=== PATIENT | male | born 1955 | race African-American/Black ===

== ENCOUNTER → 2019-07-07 | Emergency (ER) | payer OTHER ==
[~2019-07-07] VITALS: Ht 188 cm; Wt 86.2 kg
[~2019-07-07] MED LIST: traMADol 50mg tab ORAL ONE
--- NOTE | 2019-07-07 21:09 | NUR ---
ED Nurse Note: PT brought in by ambulance from the street for yelling and C/O sciatica / back pain. PT also reports having sharp chest pain x 1 month. denies any cough.
[2019-07-07 21:12] VITALS: BP 135/105
[2019-07-07] MEDS: Aspirin Baby 81mg ORAL ONE ×2 (21:35→21:39)
[2019-07-07 21:43] LABS: BASOPHILS % (AUTO) 1.6 % (0.0-2.0); EOSINOPHILS % (AUTO) 1.4 % (0.0-3.0); HEMATOCRIT 37.3 % (42.0-52.0); HEMOGLOBIN 11.5 G/DL (14.2-18.0); LYMPHOCYTES % (AUTO) 32.3 % (20.0-45.0); MEAN CORPUSCULAR VOLUME 83 FL (80-99); MONOCYTES % (AUTO) 10.1 % (1.0-10.0); NEUTROPHILS % (AUTO) 54.7 % (45.0-75.0); PLATELET COUNT 417 K/UL (150-450); RED BLOOD COUNT 4.47 M/UL (4.70-6.10); RED CELL DISTRIBUTION WIDTH 18.6 % (11.6-14.8); WHITE BLOOD COUNT 5.9 K/UL (4.8-10.8)
--- NOTE | 2019-07-07 21:45 | Emergency Room Report ---
History of Present Illness General Chief Complaint: Pain Source: Patient (Brandy Arriaga DO) Present Illness HPI This patient is homeless from the streets. He states that several months ago he fell forward and hit his chest. He states that he has intermittent sharp pain on the left side of his chest. He states he also has sciatica and that the sciatica has flared up. The patient is easily agitated and yells and swears. He denies cough or congestion. He denies fever chills. He denies nausea or vomiting. He has no other complaints. (Brandy Arriaga DO) Allergies: Coded Allergies: No Known Allergies (Unverified , 07/07/19) COVID-19 Screening Contact w/high risk pt: No Recent Travel to affected area: No Experienced COVID-19 symptoms?: No COVID-19 Testing performed [employer]: No (Brandy Arriaga DO) Patient History Past Medical History: see triage record, HTN, GERD, other - Bilateral inguinal hernias, Sciatica, ulcerative colitis. Social History: Reports: alcohol use, drug use Reviewed Nursing Documentation: PMH: Agreed; PSxH: Agreed (Brandy Arriaga DO) Nursing Documentation-PMH Past Medical History: No Stated History (Brandy Arriaga DO) Review of Systems All Other Systems: negative except mentioned in HPI (Brandy Arriaga DO) Physical Exam Vital Signs Date Time Temp Pulse Resp B/P (MAP) Pulse Ox O2 Delivery O2 Flow Rate FiO2 07/07/19 21:06 98.2 84 20 140/111 (121) 100 Room Air Sp02 EP Interpretation: reviewed, normal General Appearance: no apparent distress, alert, GCS 15, non-toxic, other - discheveled, poor personal hygiene, poor dentition. Head: normocephalic, atraumatic Eyes: bilateral eye normal inspection, bilateral eye PERRL ENT: hearing grossly normal, normal pharynx, no angioedema, normal voice, other - Poor dentition Neck: normal inspection Respiratory: chest non-tender, lungs clear, normal breath sounds, no respiratory distress, no retraction, no accessory muscle use, speaking full sentences Cardiovascular #1: regular rate, rhythm, no edema Gastrointestinal: normal bowel sounds, non tender, soft, non-distended, no guarding, no rebound, other - Large bilaleral indirect inguinal hernias into both scrotum. Rectal: deferred Genitourinary: other - See above. Musculoskeletal: back normal, normal range of motion, gait/station normal, non- tender Neurologic: alert, motor strength/tone normal, oriented x3, sensory intact, responsive, speech normal Psychiatric: judgement/insight normal, memory normal, mood/affect normal, no suicidal/homicidal ideation Skin: normal color (Colianno,Brandy Nikki. DO) Medical Decision Making Diagnostic Impression: Primary Impression: Chest pain Qualified Codes: R07.9 - Chest pain, unspecified Additional Impressions: Sciatica Qualified Codes: M54.30 - Sciatica, unspecified side Methamphetamine abuse ER Course This patient was very agitated during his ED course. He was yelling and swearing at the staff. He was demanding and disruptive. He refused a chest x- ray. He did agree to a lab draw and EKG, L-spine xray and CXR which was pending at the time of turnover to Dr. Hill. Plan to rule out significant chest injury and review basic labs and monitor for an emergency medical condition. Labs Test 07/07/19 21:30 07/07/19 21:50 White Blood Count 5.9 K/UL (4.8-10.8) Red Blood Count 4.47 M/UL (4.70-6.10) Hemoglobin 11.5 G/DL (14.2-18.0) Hematocrit 37.3 % (42.0-52.0) Mean Corpuscular Volume 83 FL (80-99) Mean Corpuscular Hemoglobin 25.6 PG (27.0-31.0) Mean Corpuscular Hemoglobin Concent 30.7 G/DL (32.0-36.0) Red Cell Distribution Width 18.6 % (11.6-14.8) Platelet Count 417 K/UL (150-450) Mean Platelet Volume 6.4 FL (6.5-10.1) Neutrophils (%) (Auto) 54.7 % (45.0-75.0) Lymphocytes (%) (Auto) 32.3 % (20.0-45.0) Monocytes (%) (Auto) 10.1 % (1.0-10.0) Eosinophils (%) (Auto) 1.4 % (0.0-3.0) Basophils (%) (Auto) 1.6 % (0.0-2.0) Sodium Level 140 MMOL/L (136-145) Potassium Level 4.0 MMOL/L (3.5-5.1) Chloride Level 105 MMOL/L (98-107) Carbon Dioxide Level 25 MMOL/L (21-32) Anion Gap 10 mmol/L (5-15) Blood Urea Nitrogen 20 mg/dL (7-18) Creatinine 1.3 MG/DL (0.55-1.30) Estimat Glomerular Filtration Rate > 60 mL/min (>60) Glucose Level 67 MG/DL (74-106) Calcium Level 9.2 MG/DL (8.5-10.1) Total Bilirubin 0.4 MG/DL (0.2-1.0) Aspartate Amino Transf (AST/SGOT) 48 U/L (15-37) Alanine Aminotransferase (ALT/SGPT) 45 U/L (12-78) Alkaline Phosphatase 98 U/L (46-116) Troponin I 0.023 ng/mL (0.000-0.056) Total Protein 7.6 G/DL (6.4-8.2) Albumin 3.2 G/DL (3.4-5.0) Globulin 4.4 g/dL Albumin/Globulin Ratio 0.7 (1.0-2.7) Urine Opiates Screen Negative (NEGATIVE) Urine Barbiturates Screen Negative (NEGATIVE) Phencyclidine (PCP) Screen Negative (NEGATIVE) Urine Amphetamines Screen Positive (NEGATIVE) Urine Benzodiazepines Screen Negative (NEGATIVE) Urine Cocaine Screen Negative (NEGATIVE) Urine Marijuana (THC) Screen Positive (NEGATIVE) ([facility]) EKG Diagnostic Results Rate: normal Rhythm: NSR ST Segments: no acute changes ([facility] DO) Rhythm Strip Diag. Results EP Interpretation: yes Rate: 80's Rhythm: NSR, no PVC's, no ectopy ([facility] DO) Last Vital Signs Date Time Temp Pulse Resp B/P (MAP) Pulse Ox O2 Delivery O2 Flow Rate FiO2 07/07/19 21:12 98.0 88 19 135/105 99 Room Air ([facility]) Status: improved (Jaguar Hill MD) Disposition: HOME, SELF-CARE Condition: Stable Referrals: NON PHYSICIAN (PCP) Brandy Arriaga DO July 07, 2019 21:45 Jaguar Hill MD July 08, 2019 03:21
[2019-07-07 21:57] LABS: ANION GAP 10 mmol/L (5-15); BLOOD UREA NITROGEN 20 mg/dL (7-18); CARBON DIOXIDE 25 MMOL/L (21-32); CHLORIDE 105 MMOL/L (98-107); CREATININE 1.3 MG/DL (0.55-1.30); SODIUM 140 MMOL/L (136-145)
[2019-07-07 21:58] LABS: ALANINE AMINOTRANSFERASE 45 U/L (12-78); ALBUMIN 3.2 G/DL (3.4-5.0); ALBUMIN/GLOBULIN RATIO 0.7 (1.0-2.7); ALKALINE PHOSPHATASE 98 U/L (46-116); ASPARTATE AMINO TRANSFERASE 48 U/L (15-37); BILIRUBIN,TOTAL 0.4 MG/DL (0.2-1.0); CALCIUM 9.2 MG/DL (8.5-10.1)
--- NOTE | 2019-07-08 09:36 | Diagnostic Imaging Report ---
Procedure: XRAY Chest 1v Reason for study: Chest pain Comparison films: None. FINDINGS: A single one view chest is obtained. Vascularity is normal. There could be early perihilar infiltrates. There is cardiomegaly. CP angles are sharp. The bony thorax appear unremarkable. IMPRESSION: Possible early perihilar infiltrates.
--- NOTE | 2019-07-08 09:37 | Diagnostic Imaging Report ---
EXAM: X-RAY XRAY [facility] CLINICAL HISTORY: Back pain. COMPARISON: None FINDINGS: Total of 3 views of the lumbar spine were obtained. Moderate spondylosis of the lumbar spine noted. There is slight levoscoliosis seen on the frontal view and straightening of the spine on the lateral view. Degenerative anterolisthesis of L3 on L4 and L4 on L5 noted. There is no compression deformity. Disc space narrowing noted at multiple levels. Surrounding soft tissue is normal. IMPRESSION: MODERATE SPONDYLOSIS WITH LEVOSCOLIOSIS, DEGENERATIVE ANTEROLISTHESIS, DISC SPACE NARROWING. NO ACUTE BONY ABNORMALITY.
== END | disposition home or self-care (01) ==
LOC: EDBD 21:12 → EMR 21:31
DX: R07.9 Chest pain, unspecified (principal); M54.30 Sciatica, unspecified side; F15.10 Other stimulant abuse, uncomplicated; I10 Essential (primary) hypertension; K21.9 Gastro-esophageal reflux disease without esophagitis; M47.816 Spondylosis without myelopathy or radiculopathy, lumbar region; I51.7 Cardiomegaly
CPT/HCPCS: 36415; 71045; 72020; 80053; 80307; 84484; 85025; 93005; Z7502; 99284